=== PATIENT | male | born 1970 | race Caucasian/White ===

== ENCOUNTER 2024-06-20 06:49 | Outpatient (REF) | payer OTHER, SELFPAY ==
[2024-06-20] VITALS (13 sets, daily range): BP systolic 72–158; BP diastolic 64–92
[2024-06-20 07:59] LABS: % Basophils 0.6 % (0-2); % Eosinophils 4.1 % (0-6); % Immature Granulocytes 0.4 % (0-0.5); % Lymphocytes 26.1 % (20.5-51.1); % Monocytes 6.1 % (1.7-9.3); % Neutrophils 62.7 % (42.2-75.2); Absolute Eosinophils 0.2 10^3/uL (0-0.7); Absolute Lymphocytes 1.4 10^3/uL (1.2-3.4); Absolute Monocytes 0.3 10^3/uL (0.1-0.6); Absolute Neutrophils 3.4 10^3/uL (1.4-6.5); Hematocrit 33.3 % (39.0-52.0); Hemoglobin 10.7 g/dL (13.0-18.0); Mean Corp Hgb Conc. 32.1 g/dL (33.0-37.0); Mean Corpuscular Hgb 25.7 pg (27.0-31.0); Mean Corpuscular Volume 79.9 fL (80.0-94.0); Mean Platelet Volume 8.7 fL (7.4-10.4); Nucleated Red Blood Cells % 0 % (-); Platelet Count 250 10^3/uL (130-400); Red Blood Cell Count 4.17 10^6/uL (4.70-6.10); Red Cell Dist. Width 14.2 % (11.5-14.5); White Blood Cell Count 5.4 10^3/uL (4.8-10.8)
[2024-06-20] MEDS: CATAPRES 0.1 MG PO (07:59)
[2024-06-20 08:07] LABS: INR 1.02; PT 13.7 Sec (11.4-14.6)
[2024-06-20 08:15] LABS: Blood Urea Nitrogen 55 mg/dl (9-20); Calcium 9.7 mg/dl (8.4-10.2); Carbon Dioxide 21 mmol/L (22-30); Chloride 110 mmol/L (98-107); Glucose 98 mg/dl (70-99); Potassium 4.8 mmol/L (3.5-5.1); Sodium 144 mmol/L (135-145); eGFR 21.48
[2024-06-20 14:06] LABS: Hemoglobin 10.2 g/dL (13.0-18.0)
== END 2024-06-20 15:40 | disposition home or self-care (01) ==
LOC: RADI 06:49
PROVIDERS: Radiology Vascular & Interventional Radiology; ATTENDING PHYSICIAN Internal Medicine
DX: N17.9 Acute kidney failure, unspecified (principal); I12.9 Hypertensive chronic kidney disease with stage 1 through stage 4 chronic kidney disease, or unspecified chronic kidney disease; N18.32 Chronic kidney disease, stage 3b
CPT/HCPCS: 50200; 77012; 80048; 85014; 85018; 85025; 85610; 88305; 99152; 99153

== ENCOUNTER → 2024-10-27 12:46 | Outpatient (REF) | payer OTHER, SELFPAY | LOC: RAD 12:46 | PROVIDERS: ATTENDING PHYSICIAN Surgery Vascular Surgery; FAMILY PHYSICIAN Family Medicine | DX: N18.4 Chronic kidney disease, stage 4 (severe) (principal) | CPT/HCPCS: 93985 ==

== ENCOUNTER 2025-02-06 06:13 | Day surgery (SDC) | payer OTHER, SELFPAY ==
[2025-02-06] VITALS (16 sets, daily range): BP systolic 121–163; BP diastolic 67–91; BMI 38.3
[2025-02-06 07:13] LABS: Hematocrit 25.9 % (39.0-52.0); Hemoglobin 8.1 g/dL (13.0-18.0); Mean Corp Hgb Conc. 31.3 g/dL (33.0-37.0); Mean Corpuscular Volume 81.2 fL (80.0-94.0); Platelet Count 166 10^3/uL (130-400); Red Cell Dist. Width 14.5 % (11.5-14.5)
[2025-02-06 07:15] LABS: INR 1.13; PT 14.8 Sec (11.4-14.6)
[2025-02-06 07:16] LABS: APTT 33.9 Sec (23.4-35.0)
[2025-02-06] MEDS: BACTROBAN NASAL 1 GRAM NASAL (07:16)
[2025-02-06] MEDS: PERIDEX 0.12% ORAL RINSE 15 ML PO (07:16)
[2025-02-06] MEDS: VANCOCIN 530 MG IV (07:17)
--- NOTE | 2025-02-06 07:18 | HP.FOC2 ---
Focused History & Physical
Chief Complaint
HPI:
Chief Complaint: End-stage renal disease
HPI / Indication for Planned Procedure: 54-year-old male here for planned left possible right upper extremity AV fistula creation, possible graft with Dr. Flower. Patient presents at baseline health. No recent illnesses or trauma. Patient agreeable
to plan and wishes to proceed with procedure today.
Relevant Past Medical History: Other (Gout, hypertension, obesity, umbilical hernia, CKD, UTI, severe obstructive sleep apnea)
Relevant Social History: ETOH (Former) and Tobacco Use (Former)
Relevant Family History: Positive for (CAD, CHF, ME, hypertension, no family history of kidney disease)
Relevant Past Surgical History: Positive for (Kidney biopsy)
Review of Systems
Review of Pertinent Systems: All Systems Negative
Medication
See Medication form for detailed medications: Yes
Medication List (including Herbals & OTC):
amlodipine 10 mg tablet 10 mg PO DAILY 06/16/24
hydralazine 25 mg tablet 25 mg PO BID 06/16/24
sodium bicarbonate 650 mg tablet 2,600 mg PO DAILY 06/16/24
Lokelma 1 packet PO MOWEFR 02/02/25
allopurinol 100 mg tablet 100 mg PO BID 02/02/25
prednisone 1 tab PO PRN PRN gout 02/02/25
sodium bicarbonate 650 mg tablet 3,250 mg PO HS 02/02/25
trazodone 50 mg tablet 50 mg PO HS 02/02/25
Medications Reviewed: Yes
Allergies and Reactions
Patient has Allergies: Yes
Noted Allergies and Reactions:
Allergy/AdvReac Type Severity Reaction Status Date / Time
Penicillins Allergy Unknown Unknown Verified 02/02/25 11:23
silver nitrate Allergy Eye Verified 02/02/25 11:23
Irritation,
eye
swelling
Pertinent Physical Exam
All Other Systems: Negative
Head/Neck: Normal
Lungs: Normal
Heart: Normal (Tachycardic)
Abdomen: Normal
Extremities: Normal
Neurological: Normal
Diagnosis / Assessment
End-stage renal disease
Plan / Procedure
Here for planned left possible right upper extremity AV fistula creation, possible graft with Dr. Flower.
--- NOTE | 2025-02-06 07:21 | W.SUR.PREOP ---
Pre-Operative Surgical Note
-
I have examined this patient prior to the performance of the scheduled procedure.
The patient's condition is unchanged from the time of the current History and
Physical and the patient is able to undergo the scheduled procedure.
[2025-02-06 07:36] LABS: Blood Urea Nitrogen 64 mg/dl (9-20); Calcium 9.8 mg/dl (8.4-10.2); Carbon Dioxide 18 mmol/L (22-30); Chloride 111 mmol/L (98-107); Estimated Creatinine Clearance 19 ml/min; Glucose 91 mg/dl (70-99); Potassium 4.5 mmol/L (3.5-5.1); Sodium 140 mmol/L (135-145); eGFR 10.92
--- NOTE | 2025-02-06 09:01 | W.SUR.POST ---
Surgical Immediate Post Op
Note
Pre Op Diagnosis: ESRD
Post Op Diagnosis: same
Procedure Performed: LUE radiocephalic AV fistula creation
Primary Surgeon: Mundo
Assist: Rory WRIGHT
Anesthesia: LMA
Estimated Blood Loss: 2cc
Fluids: See anesthesia flow sheet
Drains/Shunts: None
Specimens/Cultures: None
Doppler/Duplex/Angio (Y/N): Y
Complications: None
Operative Findings: +thrill
--- NOTE | 2025-02-06 12:14 | OR.RPT ---
Operative Report
Operative Report
PROCEDURE DATE: 02/06/2025
Preoperative diagnosis: Advanced chronic kidney disease
Postoperative diagnosis: Same
Procedure: Left upper extremity radiocephalic arteriovenous fistula creation
Surgeon: Mundo
Senior Medical Billing Specialist: JIMENEZ Valadez, required for all aspects of procedure including assistance with traction/countertraction, following suture line, assistance with closure.
Complications: None
Anesthesia: General
Indications for procedure:
Advanced chronic kidney disease, referred for hemodialysis access creation. Risk/benefits/alternatives of fistula creation were discussed with the patient and his family. He understood all wish to proceed.
Description of procedure:
Patient was identified brought to the operating room placed on the table in supine position. After induction of anesthesia, I did ultrasound the left upper extremity veins and confirmed that the forearm cephalic vein and radial artery distally were
very suitable arterial and venous conduits. After the adequate administration of anesthesia and perioperative antibiotics he was prepped and draped in the standard surgical fashion. A standard preoperative timeout was undertaken and everybody was
in agreement the plan. A longitudinal incision was made distal forearm/wrist on the radial aspect. This was carried through skin subcutaneous tissue.
A small lateral subcutaneous flap was raised and the cephalic vein was identified. It was carefully dissected away from surrounding structures take great care to avoid any injury to the structures. It was a very suitable sized vein. Any branches
were ligated between silk ties and then divided. Thus this allowed me to mobilize the vein. Once I mobilized the suitable segment, I deepened my dissection in the medial aspect of the incision through the fascial layer. I identified the radial
artery. I carefully dissected away from surrounding structures take great care to avoid any injury to structures. I passed a vessel loop around it proximally and distally.
Next, I ligated the cephalic vein distally in my field with a silk tie and a clip. I then transected it. I distended the vein under heparinized saline. It distended very well. I passed the dilators using 2.5 mm, followed by 3 mm dilators which
passed without any difficulty whatsoever. I marked the anterior surface of the vein under distention to avoid any kinking or twisting.
Next, I gave the patient 3000 units of intravenous heparin. I placed occlusive Yasargil clips on the radial artery proximally distally. I made an arteriotomy with a Towner blade and extended using a micro Krishna scissor. I then spatulated the
cephalic vein and sewed an end to side anastomosis using a running 7-0 Prolene suture. I backbled the artery and then completed and tied down my suture line. Next I released my proximal Yasargil clip. Finally I released my Yasargil clip. There
was an excellent thrill in the fistula. There was an excellent Doppler signal in the radial artery proximally and distally to the fistula. At this point I was very satisfied. I irrigated. I achieved and confirmed full hemostasis. We then
closed in layers using 3-0 Vicryl deep dermal layer followed by 4-0 Monocryl subcuticular stitch. Dermabond was applied. All sponge, needle, instrument counts were correct at the end of the case. The patient tolerated the procedure well, and was
transported to the recovery room in stable condition.
--- NOTE | 2025-02-06 14:48 | PTCARENOTE ---
1300: Pt tolerating all well. Pt SPO2 continues to drop to 87% when he drifts off to sleep; immediately wakes and performs CADB as well as incentive spirometry - pulling TV 2000 plus. SPO2 97% - 100% otherwise.
1330: After TT with Dr. Weaver, Dr. Weaver at bedside to evaluate pt. Pt okay for D/C.
== END 2025-02-06 13:40 | disposition home or self-care (01) ==
LOC: CATH 06:13
PROVIDERS: ATTENDING PHYSICIAN Surgery Vascular Surgery; PRIMARYCARE PHYSICIAN Family Medicine
DX: I12.0 Hypertensive chronic kidney disease with stage 5 chronic kidney disease or end stage renal disease (principal); I45.10 Unspecified right bundle-branch block; N18.6 End stage renal disease; Z82.49 Family history of ischemic heart disease and other diseases of the circulatory system; G47.33 Obstructive sleep apnea (adult) (pediatric); Z87.440 Personal history of urinary (tract) infections; Z88.0 Allergy status to penicillin; Z87.891 Personal history of nicotine dependence
CPT/HCPCS: 36821; 80048; 85027; 85610; 85730; 86850; 86900; 86901; 93005

== ENCOUNTER → 2025-02-17 14:27 | Outpatient (REF) | payer OTHER, SELFPAY ==
[2025-02-17 15:29] LABS: Hematocrit 27.9 % (39.0-52.0); Hemoglobin 8.5 g/dL (13.0-18.0); Mean Corp Hgb Conc. 30.5 g/dL (33.0-37.0); Mean Corpuscular Volume 81.8 fL (80.0-94.0); Nucleated Red Blood Cells % 0 % (-); Platelet Count 246 10^3/uL (130-400); Red Cell Dist. Width 14.9 % (11.5-14.5); Reticulocyte Count 0.8 % (0.4-2.8)
[2025-02-17 15:49] LABS: Blood Urea Nitrogen 63 mg/dl (9-20); Calcium 9.7 mg/dl (8.4-10.2); Carbon Dioxide 19 mmol/L (22-30); Chloride 110 mmol/L (98-107); Glucose 112 mg/dl (70-99); Iron 70 ug/dl (49-181); LDH 170 U/L (120-246); Potassium 5.4 mmol/L (3.5-5.1); Sodium 139 mmol/L (135-145); eGFR 9.52
[2025-02-17 16:04] LABS: Total Iron Binding Capacity 354 ug/dl (261-462)
[2025-02-17 16:22] LABS: Ferritin 64.1 ng/ml (17.9-464.0)
[2025-02-17 16:53] LABS: Folate 11.7 ng/ml (2.76-20); Vitamin B12 341 pg/ml (239-931)
== END ==
LOC: REG 14:27
PROVIDERS: ATTENDING PHYSICIAN Nurse Practitioner Adult Health; FAMILY PHYSICIAN Family Medicine
DX: D64.9 Anemia, unspecified (principal); R53.82 Chronic fatigue, unspecified; N18.5 Chronic kidney disease, stage 5
CPT/HCPCS: 36415; 80048; 82607; 82728; 82746; 82784; 83010; 83521; 83540; 83550; 83615; 84155; 84165; 84439; 84443; 85025; 85045; 85652; 86334; 86880

== ENCOUNTER → 2025-03-13 06:40 | Outpatient (REF) | payer OTHER, SELFPAY | LOC: RAD 06:40 | PROVIDERS: ATTENDING PHYSICIAN Registered Nurse; FAMILY PHYSICIAN Family Medicine | DX: N18.4 Chronic kidney disease, stage 4 (severe) (principal) | CPT/HCPCS: 93990 ==